=== PATIENT | male | born 1965 | race Caucasian/White ===

== ENCOUNTER 2020-01-04 06:37 | Outpatient (CLI) | payer BC, SELFPAY ==
--- NOTE | ~2020-01-04 | CT_ITS ---
EXAMINATION: CT abdomen pelvis w con DATE: 01/04/2020 07:25 INDICATION: Left lower quadrant abdominal pain. Liver abscess. Diverticulitis. TECHNIQUE: Computed tomography (CT) of the abdomen and pelvis was performed with 100 cc Omnipaque 350 intravenous contrast. Automated exposure control and iterative reconstruction technique were employe d. Exam dose: 815.29 mGy-cm total exam DLP. COMPARISON: 09/27/2018 CT abdomen pelvis with IV contrast material 03/29/2019 MRI abdomen FINDINGS: There are scattered areas of discoid atelectasis or scarring in the lower lung zones. Normal heart size. No pericardial or pleural effusion. Status post cholecystectomy. No bile duct or pancreatic duct dilatation. No pancreatic mass lesion or calcification. There are occasional areas of subtle ill-defined diminished attenuation of the liver of uncertain sig nificance. There is a history of liver abscess. Liver abscesses may be present. Hepatic solid mass le sions or metastases cannot be excluded. Recommend hepatic MRI evaluation which can be done with the p reviously recommended follow-up MRI evaluation of the previously reported Bosniak 2F cystic lesion of the left kidney. The left renal lesion is ill-defined and may measure up to as much as 12 mm on the current examinatio n. Hypernephroma is not excluded. As previously recommended, MRI of the left kidney is recommended at this time. There is splenomegaly, spleen measuring up to 17.3 cm vertical dimension, compared to 16 cm vertical dimension on 09/27/2018.. Normal morphology of the adrenal glands. There is abdominal aortic calcification and calcification of the iliac arteries. There is an approximately 1.5 x 2.4 cm pericolic abscess in the sigmoid colon area, with thickening o f the wall of the sigmoid colon and pericolic fat stranding in this area, compatible with sigmoid div erticulitis and diverticular abscess. No bowel obstruction or intraperitoneal free air is evident. Normal appendix. No intraperitoneal or retroperitoneal or pelvic mass lesion or adenopathy or ascites is noted. Small fat-containing left inguinal hernia. Included skeletal structures are unremarkable; no suspicious osteolytic or osteoblastic lesion is not ed. IMPRESSION: MRI examination of the liver and kidneys is recommended for possible liver and possibly enlarging left renal masses. Hypernephroma of the left kidney must be seriously considered and furthe r evaluation by MRI is strongly recommended. Sigmoid diverticulitis with diverticular abscess Splenomegaly Dr. Gasca telephoned the report and MRI liver and renal examination recommendation to Dr. Blandon on at 0822 hours. Reviewed, dictated and finalized at [facility]. Reviewed, dictated and finalized at [facility]. IMPRESSION: MRI examination of the liver and kidneys is recommended for possib le liver and possibly enlarging left renal masses. Hypernephroma of the left ki dney must be seriously considered and further evaluation by MRI is strongly rec ommended. Sigmoid diverticulitis with diverticular abscess Splenomegaly Dr. Gasca telephoned the report and MRI liver and renal examination recommendati on to Dr. Blandon on 01/04/2020 at 0822 hours.
== END 2020-01-04 06:38 | disposition home or self-care (01) ==
PROVIDERS: PCP Internal Medicine; Visit Provider Internal Medicine Gastroenterology
DX: K57.92 Diverticulitis of intestine, part unspecified, without perforation or abscess without bleeding (principal); K75.0 Abscess of liver; R16.1 Splenomegaly, not elsewhere classified
CPT/HCPCS: 74177; Q9967

== ENCOUNTER 2020-02-21 00:12 | Outpatient (CLI) | payer BC, SELFPAY ==
[2020-02-21 18:58] LABS: SARS-CoV-2 RNA PCR Negative
== END 2020-02-21 00:13 | disposition home or self-care (01) ==
LOC: ANHCOVIDDT 00:12
PROVIDERS: PCP Internal Medicine; Visit Provider Internal Medicine Gastroenterology
DX: Z01.812 Encounter for preprocedural laboratory examination (principal); Z20.828 Contact with and (suspected) exposure to other viral communicable diseases
CPT/HCPCS: 87635; C9803; U0003

== ENCOUNTER 2020-02-23 01:05 | Day surgery (SDC) | payer BC, SELFPAY ==
[2020-02-15 11:47] VITALS: BMI 30.9
--- NOTE | ~2020-02-23 | CT_ITS ---
EXAMINATION: CT abdomen pelvis w con DATE: 02/23/2020 08:59 INDICATION: Liver abscess. TECHNIQUE: Computed tomography (CT) of the abdomen and pelvis was performed with 100 mL Omnipaque 350 intravenous contrast. Automated exposure control and iterative reconstruction technique were employe d. The dose-length product was 735.90 mGy-cm. COMPARISON: CT abdomen and pelvis 01/04/2020, 09/27/2018, abdomen MRI 03/29/2019 FINDINGS: The visualized portions of the lung bases demonstrate mild atelectasis. No pleural effusion . The heart size is normal. No pericardial effusion. The liver is normal. There is mild splenomegaly measuring 16.8 cm. There are changes of cholecystectomy. The pancreas and adrenal glands are normal. There are cysts in the kidneys measuring up to 5 mm in the left. There is a 14 mm hyperdense mass in left kidney. Prominent fat in the left inguinal canal may be a small hernia. The prostate is mildly e nlarged. There are scattered diverticula in the colon. There is wall thickening of the sigmoid colon, consistent with chronic diverticulitis. There are no dilated loops of bowel. The appendix is normal. There are no pathologically enlarged lymph nodes. There is no free intraperitoneal fluid. There is m oderate lumbar spondylosis. IMPRESSION: 1. Wall thickening of the sigmoid colon, consistent with chronic diverticulitis. 2. 14 mm hyperdense mass in left kidney, which may be benign or malignant, increased in size from 10 mm on 03/29/2019. Abdomen CT or MRI without and with contrast is recommended. 3. Chronic mild splenomegaly. Reviewed, dictated and finalized at [facility]. IMPRESSION: 1. Wall thickening of the sigmoid colon, consistent with chronic diverticulitis . 2. 14 mm hyperdense mass in left kidney, which may be benign or malignant, incr eased in size from 10 mm on 03/29/2019. Abdomen CT or MRI without and with contr ast is recommended. 3. Chronic mild splenomegaly.
[2020-02-23 06:31] VITALS: BP 135/84; PULSE 76; RESP 14; TEMP 36.5; O2SAT 100; BMI 30.2
[2020-02-23] MEDS: LACTATED RINGERS 1,000 ML 150 ML IV CONT (06:42)
--- NOTE | 2020-02-23 07:21 | PM.IMHP ---
H&P: HPI History of Present Illness Chief complaint: Diverticulitis,Liver Abcess Narrative: This very pleasant gentleman seen in consultation at the request of the primary. The patient was examined. Reason for visit colonoscopy. Impression: History of diverticulitis with diverticular abscess. Presently feeling well. History adenomatous colon polyps. Left renal mass. Recommendation: Will proceed with colonoscopy. I did advise him of the increased risk of complications and perforation due to the history of diverticulitis with abscess. He understands and assumes is risks. Will require referral to Urology for left renal mass. History: This very pleasant gentleman presented emergency room back in September with diverticulitis and abscess. He required percutaneous drainage x2. The patient was seen in the office and December. He was continued to have symptoms. Follow-up CT revealed evidence of a left renal mass and a recurrent diverticular abscess. He was treated. Since that time has been feeling better than he has in a long time. His bowel habits are normal. He denies any hematochezia, melena and acholic stools. Denies any fever, chills, abdominal pain and upper gastrointestinal symptoms. He is here for colonoscopy. General: very pleasant patient in no acute distress. HEENT: Head was normocephalic sclerae is clear mouth without masses neck was supple. Heart: Rate rhythm regular without S3 or S4. Lungs: CTA. Abdomen: Soft with no guarding or rigidity. Bowel sounds were active. Neurologic: Cranial nerves 2 through 12 intact. No focal defects. No clonus. Musculoskeletal system: Revealed no joint tenderness or swelling no muscle atrophy. Extremities: Reveal no significant edema. Skin: Warm and dry with normal turgor. Mental status: intact. Patient is alert and oriented. Review of Systems Review of Systems: All systems reviewed & are unremarkable except as noted in HPI and below PMFSH Past Medical History Medical History Adenomatous colon polyp Diverticulitis Diverticulitis of intestine with abscess Healthy adult Surgical History Surgical History H/O colonoscopy History of ear surgery Hx of cholecystectomy S/P foot surgery, left Family History Family History Father Hx of CABG Other Cerebrovascular accident Family history of cardiovascular disease Social History Social History Smoking status: Never smoker Alcohol intake: current Substance use: never Gender identity (if verbalized by the patient): Male Meds Home Medications and Allergies Home Medications Medication Instructions Recorded Confirmed Type No Home Medications 02/15/20 02/23/20 History Allergies Allergy/AdvReac Type Severity Reaction Status Date / Time ciprofloxacin Allergy Unknown hives Verified 02/23/20 06:29 Vital Signs Vital Signs - 24 hr 02/23/20 06:31 Temperature 36.5 C Pulse Rate 76 Respiratory Rate 14 Blood Pressure 135/84 Pulse Oximetry 100
--- NOTE | 2020-02-23 07:21 | WPDANESEPPF ---
Anes - Initial Pre Proc Eval Procedure: Operation Date: 02/23/20 07:30 Proposed Procedures p Colonoscopy - Boogie Blandon DO Date/Time: 02/23/20 07:21 Surgeon: Boogie Blandon DO Pre Op Diagnosis: Diverticulitis,Liver Abcess Patient Data Age: 54 Gender: M Height: 5 ft 10 in Weight: 95.7 kg Last Vital Signs Temp 97.7 F 02/23/20 06:31 Pulse 76 02/23/20 06:31 Resp 14 02/23/20 06:31 BP 135/84 02/23/20 06:31 Pulse Ox 100 02/23/20 06:31 Allergies Allergy/AdvReac Type Severity Reaction Status Date / Time ciprofloxacin Allergy Unknown hives Verified 02/23/20 06:29 Home Medications Medication Instructions Recorded Confirmed Type No Home Medications 02/15/20 02/23/20 History Patient hx anesthesia problems: none Family hx anesthesia problems: none PMFSH Past Medical History Medical History (Updated 02/23/20 @ 07:21 by Herman Cole MD) Adenomatous colon polyp Diverticulitis Diverticulitis of intestine with abscess Healthy adult Surgical History Surgical History H/O colonoscopy History of ear surgery Hx of cholecystectomy S/P foot surgery, left Social History Social History Smoking status: Never smoker Alcohol intake: current Substance use: never Gender identity (if verbalized by the patient): Male Anes - Eval Final PreProcedure Day of Procedure 02/23/20 07:21 Patient weight: normal Heart: regular rate and rhythm Lungs: clear to auscultation Airway: Mallampati scale class II Neurological: alert and oriented Last oral intake: >/= 8 hours ASA classification: I Emergent: no Anesthetic plan: proceed Anesthesia type and monitoring: general GIVS and standard monitoring Informed Consent: The patient's anesthetic plan and its attendant risks and benefits were discussed with the patient/family/POA. Questions were solicited and answers provided to the satisfaction of the patient/family/POA.
[2020-02-23 07:58] VITALS: BP 113/73; PULSE 78; RESP 21; O2SAT 96
[2020-02-23 08:08] VITALS: BP 110/71; PULSE 69; RESP 17; O2SAT 98
[2020-02-23 08:18] VITALS: BP 119/82; PULSE 63; RESP 14; O2SAT 100
[2020-02-23 08:28] VITALS: BP 116/74; PULSE 65; RESP 17; O2SAT 100
--- NOTE | 2020-02-23 09:03 | SUR.PHASEII ---
0821 PT WENT TO GET CT SCAN DONE VIA WHEELCHAIR AND IV WILL BE REMOVED THERE
== END 2020-02-23 08:41 | disposition home or self-care (01) ==
PROVIDERS: PCP Internal Medicine; Visit Provider Internal Medicine Gastroenterology
PROC: 0DJD8ZZ Inspection of Lower Intestinal Tract, Via Natural or Artificial Opening Endoscopic (ICD-10-PCS; CPT 45378; principal; 2020-02-23 07:30)
DX: Z12.11 Encounter for screening for malignant neoplasm of colon (principal); D12.2 Benign neoplasm of ascending colon; D12.3 Benign neoplasm of transverse colon; K57.30 Diverticulosis of large intestine without perforation or abscess without bleeding; K64.8 Other hemorrhoids; N28.9 Disorder of kidney and ureter, unspecified; R16.1 Splenomegaly, not elsewhere classified; Z87.19 Personal history of other diseases of the digestive system; Z95.1 Presence of aortocoronary bypass graft
CPT/HCPCS: 45385; 74177; 88305; J2704; J7120; Q9967

== ENCOUNTER 2020-03-15 07:53 | Outpatient (CLI) | payer BC, SELFPAY ==
--- NOTE | ~2020-03-15 | MR_ITS ---
EXAMINATION: MR abdomen wo/w con INDICATION: Left kidney mass TECHNIQUE: Coronal SSFSE ARC, WATER:coronal LAVA-FLEX, Coronal 2D FIESTA FatSat, Axial SSFSE BH ARC, Axial 3D DualEcho BH, Axial SSFSE-IR, Axial DWI b=500, Axial 2D FIESTA FatSat, pre and dynamic postco ntrast Axial LAVA ARC, postcontrast Coronal In and Opposed phase LAVA FLEX COMPARISON: 02/23/2020, 03/29/2019, 10/08/2018 CONTRAST: Multihance, 20 cc FINDINGS: There is a 1.4 cm T1 and T2 hypointense mass of the left kidney upper pole which demonstrat es enhancing internal septations and increased in size since the comparison MRI examinations. A 6 mm cyst is present in the upper pole of the left kidney. Cysts of the right kidney measure up to 5 mm. T he liver is diffusely low in attenuation when compared with the spleen, consistent with hepatic steat osis. There are two new areas of hypoenhancement in the right hepatic lobe of unclear significance, n ot felt to be related to the left kidney mass. The larger of the two measures 1.7 x 1.4 cm and is adj acent to an opacity of the right lower lobe, possibly related to interval trauma or infection. Mild s plenomegaly is noted. The gallbladder is surgically absent. The pancreas and adrenal glands are mikey l. There are no pathologically enlarged abdominal lymph nodes. There are no dilated loops of bowel. IMPRESSION: 1. Left kidney mass with interval enlargement, raising suspicion for renal cell carcinoma rather than a benign complex cystic lesion. Reviewed, dictated and finalized at [facility].
[2020-03-15 08:22] LABS: Estimated Glomerular Filt Rate > 60
== END 2020-03-15 07:54 | disposition home or self-care (01) ==
PROVIDERS: PCP Internal Medicine; Visit Provider Urology
DX: N28.89 Other specified disorders of kidney and ureter (principal)
CPT/HCPCS: 36415; 74183; A9577

== ENCOUNTER 2020-04-04 06:49 | Outpatient (CLI) | payer BC, SELFPAY ==
--- NOTE | ~2020-04-04 | NM_ITS ---
EXAMINATION: NM liver and spleen scan DATE: 04/04/2020 08:36 INDICATION: Splenomegaly. TECHNIQUE: 8.3 mCi sulfur colloid was administered intravenously. Images of the abdomen were michelle isai COMPARISON: Abdomen MRI 03/15/2020, CT abdomen and pelvis 02/23/2020, 09/08/2010 FINDINGS: There is a normal distribution of activity in the liver, spleen, and bone marrow. The splee n is mildly enlarged. IMPRESSION: 1. Mildly enlarged spleen, stable from 09/08/2010, likely secondary to obesity. Reviewed, dictated and finalized at [facility].
== END 2020-04-04 06:50 | disposition home or self-care (01) ==
LOC: ANHIMG 06:52
PROVIDERS: PCP Internal Medicine; Visit Provider Internal Medicine Medical Oncology
DX: R16.1 Splenomegaly, not elsewhere classified (principal)
CPT/HCPCS: 78215; A9541

== ENCOUNTER 2020-11-26 11:56 | Outpatient (CLI) | payer BC, SELFPAY ==
--- NOTE | 2020-11-26 12:34 | ECG_ITS ---
Measurements Intervals [place] Rate: 60 P: -6 NH: 174 QRS: -13 QRSD: 108 T: 29 QT: 389 QTc: 389 Interpretive Statements SINUS RHYTHM INCOMPLETE RIGHT BUNDLE BRANCH BLOCK DELAYED PRECORDIAL R/S TRANSITION BASELINE ARTIFACT- I, II, AVR, AVL, V4 BORDERLINE ECG Electronically Signed On 11-26-2020 12:46:22 CDT by Fidel Calhoun D.O.
== END 2020-11-26 11:57 | disposition home or self-care (01) ==
PROVIDERS: PCP Internal Medicine; Visit Provider Surgery
DX: K57.92 Diverticulitis of intestine, part unspecified, without perforation or abscess without bleeding (principal); Z01.818 Encounter for other preprocedural examination; I45.10 Unspecified right bundle-branch block
CPT/HCPCS: 36415; 86850; 86900; 86901; 93005

== ENCOUNTER → 2020-12-01 00:24 | Outpatient (CLI) | payer BC, SELFPAY ==
[2020-12-01 19:13] LABS: SARS-CoV-2 RNA PCR Negative
== END ==
PROVIDERS: PCP Internal Medicine; Visit Provider Surgery
DX: Z01.812 Encounter for preprocedural laboratory examination (principal); Z20.822 Contact with and (suspected) exposure to COVID-19
CPT/HCPCS: C9803; U0003; U0005

== ENCOUNTER 2020-12-05 13:59 | Inpatient (IN) | payer BC, SELFPAY ==
[2020-11-26 12:35] VITALS: BP 162/81; PULSE 64; RESP 16; TEMP 36.9; O2SAT 100; BMI 33.1
--- NOTE | 2020-12-04 14:31 | PM.IMHP ---
H&P: HPI History of Present Illness Date/Time: 12/04/20 14:31 Chief Complaint: Recurrent diverticulitis Narrative: the patient is a 55-year-old man whom I evaluated initially 9 months ago in February of 2020. At that time he had recently completed a colonoscopy on 02/23/[address] Blandon. This showed a benign polyp in the ascending colon the colon and transverse colon as well as diverticulosis. The patient has had at least 7 or 8 episodes of acute diverticulitis prior to his initial evaluation. He had about 3 episodes within the last 12 months. One episode required admission to [facility] for diverticulitis with abscess. He had to have percutaneous drains placed. He had a follow-up CT scan of the abdomen pelvis done on 02/23/2020 which showed some mild wall thickening of the sigmoid colon and evidence of chronic diverticulitis. It incidentally showed a 14 mm hyperdense mass in the left kidney. The patient also consulted with Urology and had an MRI regarding this kidney lesion. This turned out to be a kidney malignancy and patient had a left partial nephrectomy on 05/18/2020 done robotically. 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 Patient followed up with me again 07/23/2020 after he had healed from his partial nephrectomy. He had fortunately avoided further episodes of diverticulitis. We plan to proceed with hand access laparoscopic sigmoidectomy but restrictions on elective inpatient surgery due to the COVID pandemic precluded the surgery. He is now taken to surgery for this purpose. He has had a full bowel preparation and explanation of the surgery as well as the recovery period and potential risks. Review of Systems Review of Systems: All systems reviewed & are unremarkable except as noted in HPI and below Constitutional: Constitutional: Denies chills and Denies fever(s) ENT: Denies headache(s) Cardiovascular: Cardiovascular: Denies chest pain, Denies diaphoresis, Denies dyspnea and Denies paroxysmal nocturnal dyspnea Respiratory: Respiratory: Denies chest congestion, Denies cough and Denies dyspnea Gastrointestinal: Gastrointestinal: Denies bloating, Denies constipation and Denies nausea Integumentary/Breasts: Skin/Breast: Denies lesions and Denies rash Neurologic: Denies confusion and Denies headache(s) Psychiatric: Psychiatric: Denies confusion [facility] Past Medical History Medical History (Updated 12/04/20 @ 14:43 by Geronimo Roberts MD) Adenomatous colon polyp Diverticulitis Diverticulitis of intestine with abscess Healthy adult Surgical History Surgical History H/O colonoscopy History of colonoscopy by Dr. Blandon on 02/23/2020 at [place] History of ear surgery History of left ear surgery about [address] 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
[2020-12-05] VITALS (11 sets, daily range): BP systolic 122–167; BP diastolic 68–85; PULSE 68–101; RESP 12–20; TEMP 36.2–36.7; O2SAT 93–99
--- NOTE | 2020-12-05 06:55 | WPDHPUPDATE1 ---
History and Physical Update Update Date/Time: 12/05/20 06:55 History and Physical has been reviewed, including an updated exam of the patient. There are NO changes in the patient's condition. Risks, benefits, and alternatives have been discussed and questions answered. Patient agrees to proceed with procedure.
--- NOTE | 2020-12-05 07:11 | P.PNAN_ITS ---
Anes - Initial Pre Proc Eval Procedure: Operation Date: 12/05/20 08:30 Proposed Procedures p Hand Assisted Laparoscopic Sigmoidectomy - Geronimo Roberts MD Date/Time: 12/05/20 07:11 Surgeon: Geronimo Roberts MD Pre Op Diagnosis: Diverticulitis Patient Data Age: 55 Gender: M Height: 5 ft 10 in Weight: 104.9 kg Last Vital Signs Temp 36.9 C 11/26/20 12:35 Pulse 64 11/26/20 12:35 Resp 16 11/26/20 12:35 BP 162/81 H 11/26/20 12:35 Pulse Ox 100 11/26/20 12:35 Allergies Allergy/AdvReac Type Severity Reaction Status Date / Time ciprofloxacin Allergy Intermediate Hives Verified 11/26/20 12:07 Home Medications Medication Instructions Recorded Confirmed Type naproxen sodium [Aleve] 440 mg PO HS 11/26/20 11/26/20 History Patient hx anesthesia problems: none Family hx anesthesia problems: none PMFSH Past Medical History Medical History Adenomatous colon polyp Diverticulitis Diverticulitis of intestine with abscess Healthy adult Surgical History Surgical History H/O colonoscopy History of colonoscopy by Dr. Blandon on 02/23/2020 at [place] History of ear surgery History of left ear surgery about [address] 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 Questions were solicited and answers provided to the satisfaction of the patient/family/POA.
[2020-12-05] MEDS: LACTATED RINGERS 1,000 ML 30 ML IV CONT ×2 (07:45→12:20)
[2020-12-05] MEDS: ACETAMINOPHEN 500 MG TABLET 1000 MG PO (07:45)
[2020-12-05] MEDS: ALVIMOPAN 12 MG CAPSULE PO (07:45)
[2020-12-05] MEDS: KETOROLAC 15 MG/ML VIAL (*BKC) IV PUSH (07:54)
[2020-12-05] MEDS: ceFAZolin 2 GM/D5W 50 ML 2 GM/50 ML BAG IVPB (08:15)
[2020-12-05] MEDS: metroNIDAZOLE 500 MG/ISO 100ML 500 MG/100 ML BAG 100 MG IVPB (08:29)
[2020-12-05] MEDS: BUPIVACAINE/EPINEPHRINE 0.5% 30 ML VIAL INFILTRATE (09:19)
--- NOTE | 2020-12-05 12:01 | SUR.OPER ---
ebl 150. 200 ml urine
--- NOTE | 2020-12-05 12:43 | PM.PROC ---
Procedure Note - Detailed Date of procedure: 12/05/20 Pre-op diagnosis: Diverticulitis Diverticulitis with abscess Post-op diagnosis: same Procedure performed: Hand access laparoscopic sigmoid colon resection with stapled #33 EEA anastomosis, laparoscopic takedown splenic flexure Description of procedure: The patient was taken to surgery and induced into general anesthesia. The abdomen was prepped and draped. The patient was in lithotomy in Nash stirrups. Rectal tube in rectal irrigation were carried out. Gilman catheter was placed. The hand access port in the lower abdominal midline was marked on the skin. Local was infiltrated into the skin and the subcutaneous. Incision was made and dissection was carried down through the subcutaneous down to the anterior rectus fascia. We opened the anterior rectus fascia near the midline and then pulled the rectus muscles aside. The posterior rectus fascia was then opened in the peritoneal cavity entered. This incision was extended the length of the wound. The Martínez was then placed in the abdomen. I felt for any adhesions around the hand access incision and none were noted. We then placed the GelPort. With a hand in the abdomen, I placed the left-sided 10 11 trocar. Local anesthetic was infiltrated prior to placement of this in each of the trocars. With the left-sided trocar placed, we insufflated the abdomen. Under direct vision we then placed an upper abdominal midline 10 11 trocar and a right-sided 5 mm trocar. General laparoscopic exploration was carried out. The LigaSure was used for literally all the intra-abdominal dissection. A few adhesions of small intestine in the pelvis were taken down so that the small intestine could be mobilized out of the pelvis and, with the help of a laparotomy sponge, kept on the right side of the abdomen. From there, we took down the lateral peritoneal attachments to the descending colon and sigmoid colon. The sigmoid colon was quite thickened particularly at its distal aspect which was likely the source of the diverticulitis. There were more adhesions to the descending colon then usual due to the previous robotic left partial nephrectomy. I mobilized the descending colon and there was some bleeding with the mobilization largely due to the previous surgery. This was not significant bleeding but more of a metal some ooze. He usually responded to pressure and laparotomy sponge. I went ahead and mobilized the descending colon towards the splenic flexure. Once we were in the area of the left kidney the adhesions were particularly numerous. I carefully dissected the descending colon and splenic flexure from the spleen and residual left kidney. This was done with the LigaSure. There was no significant bleeding. Eventually I was able to mobilize the entire descending colon and including the distal part of the splenic flexure. I then exposed the transverse colon and then dissected it from omentum and from the spleen as well as peritoneal adhesions. I mobilized the distal transverse colon and splenic flexure down to their mesentery so they were fully mobilized. The bowel looked very healthy. There was no evidence of bowel ischemia. I then started dividing the mesentery of the distal transverse colon very near the retroperitoneum, staying away from the marginal artery. Once gaining access to the mesentery in this area, I continued this dissection. The inferior mesenteric vein was divided with the LigaSure as well. I continued dividing the base of the mesentery to the entire descending colon down to the area of the sigmoid colon. This gave full mobility to the descending colon to reach down into the pelvis for anastomosis. Again the bowel was checked and had an excellent appearance with no evidence of vascular impairment. The sigmoid colon was then mobilized both from the left lateral aspect and also by dividing the peritoneum just to the right of the sacral promontory. I mobilized th
[2020-12-05] MEDS: fentaNYL CITRATE INJ (*CRX) 100 MCG/2 ML VIAL 25 MCG IV PUSH ×5 (12:54→13:42)
--- NOTE | 2020-12-05 13:33 | SUR.PHASEI ---
1330 sbar faxed floor notified
[2020-12-05] MEDS: LACTATED RINGERS 1,000 ML 100 ML IV CONT (14:16)
[2020-12-05] MEDS: HYDROcodone/acetaminophen (*CRX) 5-325 MG TABLET 1 TAB PO ×2 (14:17→18:27)
[2020-12-05] MEDS: IBUPROFEN IV 800 MG/200 ML 800 MG/200 ML BAG 400 MG IVPB ×2 (14:28→20:10)
--- NOTE | 2020-12-05 14:31 | ADMGEN ---
This patient, Roscoe Daley, was admitted to Medical Room 246-01. Patient/family oriented to hospital policies and general routines including ID bracelet, bed and alarms, visiting hours, pain management, procedures, bathroom and other care routines, personal items, smoking policy, room service/diet, and visiting hours. Information on how to activate the Rapid Response Team has been discussed. Patient/Family are encouraged to report perceived risks to care and to ask questions if they do not understand what they are told or what they should do.
[2020-12-05 15:36] LABS: Mean Platelet Volume 9.7 fl (7.4-10.4); Platelet Count Result 155 k/mm3 (150-375)
[2020-12-05] MEDS: FAMOTIDINE 20 MG/2 ML VIAL IV PUSH (20:11)
[2020-12-05] MEDS: ENOXAPARIN 30 MG/0.3 ML SYRINGE SUB-Q (20:11)
[2020-12-05] MEDS: MORPHINE SULFATE (*CRX) 4 MG/ML INJ 2 MG IV PUSH (21:45)
[2020-12-06] MEDS: IBUPROFEN IV 800 MG/200 ML 800 MG/200 ML BAG 400 MG IVPB ×2 (01:09→08:11)
[2020-12-06] MEDS: LACTATED RINGERS 1,000 ML 100 ML IV CONT (01:11)
[2020-12-06] MEDS: LIDOCAINE HCL 2% GEL UROJET 10 ML PKG MUCOUS MEM (01:11)
[2020-12-06] MEDS: HYDROcodone/acetaminophen (*CRX) 5-325 MG TABLET 1 TAB PO ×5 (01:19→20:37)
[2020-12-06] MEDS: MORPHINE SULFATE (*CRX) 2 MG/ML INJ 1 MG IV PUSH ×2 (02:09→04:52)
[2020-12-06 04:00] VITALS: BP 151/78; PULSE 88; RESP 18; TEMP 36.4; O2SAT 97
[2020-12-06 05:59] LABS: Hematocrit 40.1 % (42.0-52.0); Hemoglobin 13.9 g/dL (14.0-18.0); Mean Corpuscular HGB Conc 34.7 g/dl (32-36); Mean Corpuscular Hemoglobin 31.7 pg (26-34); Mean Corpuscular Volume 91.3 fl (80-100); Mean Platelet Volume 9.4 fl (7.4-10.4); Platelet Count Result 126 k/mm3 (150-375); Red Blood Count 4.39 M/mm3 (4.6-6.20); Red Cell Distribution Width 12.8 % (11.5-14.5); White Blood Count 15.6 K/mm3 (4.5-10.0)
[2020-12-06 06:05] LABS: Anion Gap 6 mmol/L (8-16); Blood Urea Nitrogen 14 mg/dL (9-20); Calcium 8.4 mg/dL (8.4-10.2); Carbon Dioxide 26 mmol/L (22-30); Chloride 106 mmol/L (98-107); Estimated CRCL calculation 98 ml/min; Estimated Glomerular Filt Rate > 60; Glucose 138 mg/dL (75-110); Potassium 3.8 mmol/L (3.4-5.0); Sodium 138 mmol/L (137-145)
--- NOTE | 2020-12-06 06:05 | PM.PNGS ---
Progress Note: A&P Assessment and Plan (1) Diverticulitis of large intestine with abscess without bleeding: Code(s): K57.20 - Diverticulitis of large intestine with perforation and abscess without bleeding Status: Chronic Assessment and Plan: Will double the p.r.n. doses of morphine sulfate. Up today. Check labs which are pending at this time. Advance diet slowly. Hopefully will be more comfortable today. Subjective Subjective Date/Time Seen: 12/06/20 06:05 Post Op day: 1 Patient reports: still having pain, no flatus, no bowel movement and afebrile Interval history: Had a rough night. Pain control was poor. Had to be cathed as he was unable to void. 1000 cc came back after being catheterization. Voiding okay this morning. Insomnia Review of Systems Review of Systems: All systems reviewed & are unremarkable except as noted in HPI and below Constitutional: Constitutional: Reports as per HPI, Denies chills, Reports difficulty sleeping, Denies fever(s), Denies headache(s) and Reports poor appetite Cardiovascular: Cardiovascular: Denies chest pain and Denies dyspnea Respiratory: Respiratory: Denies cough and Denies dyspnea Gastrointestinal: Gastrointestinal: Reports as per HPI, Reports abdominal pain, Denies nausea and Denies vomiting Neurologic: Denies confusion and Denies headache(s) Exam Const: General: comfortable and no acute distress; No confusion Orientation/consciousness: patient oriented x3 and No confusion GI: Inspection: non-distended and incision ( all incisions healing well) GI Palp: Yes Soft to palpation, Yes Tenderness to palpation present (GI) ( diffusely tender particularly around incisions.), No Guarding due to palpation present (GI) and No Rebound tenderness present Neuro: General: patient oriented x3, no focal motor deficits and No confusion Extrem: General: no calf tenderness and no edema Psych: Affect: normal affect Insight: Good insight present (Psych) Judgement: Good judgement present (Psych) Objective Data Vital Signs Vital Signs: Vital Signs - 24 hr 12/05/20 07:02 12/05/20 12:25 12/05/20 12:39 Temperature 36.5 C 36.5 C Pulse Rate 68 74 74 Respiratory Rate 20 16 18 Blood Pressure 153/85 H 126/75 122/68 Pulse Oximetry 99 96 97 12/05/20 12:50 12/05/20 13:05 12/05/20 13:20 Temperature Pulse Rate 77 88 91 Respiratory Rate 12 12 14 Blood Pressure 131/77 142/77 H 146/74 H Pulse Oximetry 99 99 93 12/05/20 13:35 12/05/20 13:50 12/05/20 15:50 Temperature 36.7 C Pulse Rate 88 97 82 Respiratory Rate 12 12 16 Blood Pressure 138/72 126/69 Pulse Oximetry 93 96 95 12/05/20 18:51 12/05/20 21:43 12/06/20 04:00 Temperature 36.2 C L 36.7 C 36.4 C L Pulse Rate 90 101 H 88 Respiratory Rate 16 18 18 Blood Pressure 167/75 H 141/68 H 151/78 H Pulse Oximetry 98 97 97 Intake/Output Intake/Output: Intake & Output 12/03/20 12/04/20 12/05/20 12/06/20 23:59 23:59 23:59 23:59 Intake Total 800 1200 Output Total 2000 Balance 800 -800 Meds/Results Medications: Active Medications Generic Name Dose Route Start Last Admin Trade Name Freq PRN Reason Stop Dose Admin Acetaminophen 500 mg 12/05/20 13:59 Acetaminophen 500 Mg Tablet PO Q6H PRN Mild Pain (1-3) or Fever Hydrocodone Bitart/Acetaminophen 1 tab 12/05/20 13:59 12/06/20 01:19 Hydrocodone/Acetaminophen (*Crx) 5-325 Mg Tablet PO 1 tab Q4H PRN Administration Pain Rated 4-6 Alvimopan 12 mg 12/06/20 12:38 Alvimopan 12 Mg Capsule PO 12/13/20 12:39 Q12HR YVETTE Lactated Ringer's 1,000 mls @ 80 mls/hr 12/05/20 13:59 12/06/20 01:11 Lr - Lactated Ringers Iv IV CONT 100 mls/hr .[id number] YVETTE Administration Ibuprofen 800 mg in 200 mls @ 400 mls/hr 12/05/20 14:00 12/06/20 01:40 Caldolor 800 Mg/200 Ml IVPB Infused Q6H YVETTE Infusion Naloxone HCl 0.1 mg 12/05/20 13:59 Naloxone Hcl 0.4 Mg/Ml Vial IV PUSH Q2M PRN Opiat
[2020-12-06] MEDS: MORPHINE SULFATE (*CRX) 4 MG/ML INJ IV PUSH ×4 (06:21→18:53)
[2020-12-06 08:00] VITALS: BP 153/81; PULSE 79; RESP 16; TEMP 36.2; O2SAT 99
[2020-12-06] MEDS: ENOXAPARIN 40 MG/0.4 ML SYRINGE SUB-Q (08:09)
--- NOTE | 2020-12-06 08:22 | PC.NURSE ---
call to pharm for missing pepcid
[2020-12-06] MEDS: FAMOTIDINE 20 MG TABLET PO ×2 (09:13→20:37)
--- NOTE | 2020-12-06 09:18 | WPDANESPN ---
Anes - Prog Note Post-Op Date/Time: 12/06/20 09:18 Cardiovascular status: normal Respiratory status: normal Airway patency: baseline Mental status: baseline Post-Op hydration status: normal Vital Signs: Last Vital Signs Temp 97.1 F L 12/06/20 08:00 Pulse 79 12/06/20 08:00 Resp 16 12/06/20 08:00 BP 153/81 H 12/06/20 08:00 Pulse Ox 99 12/06/20 08:00 Pain Score (VAS): 09/23 I/O: Intake & Output 12/05/20 12/06/20 12/06/20 23:59 07:59 15:59 Intake Total 300 1200 440 Output Total 2320 Balance 300 -1120 440 Laboratory Tests 12/06/20 05:11 12/06/20 05:11 12/05/20 12/06/20 12/06/20 14:22 05:11 05:11 WBC 15.6 H RBC 4.39 L Hgb 13.9 L Hct 40.1 L MCV 91.3 MCH 31.7 MCHC 34.7 RDW 12.8 Plt Count 155 126 L MPV 9.7 9.4 Sodium 138 Potassium 3.8 Chloride 106 Carbon Dioxide 26 Anion Gap 6 L BUN 14 Creatinine 0.90 Estim Creat Clear Calc 98 Estimated GFR > 60 Glucose 138 H Calcium 8.4 Patient Feedback: Patient satisfied with anesthetic care.
[2020-12-06 09:41] VITALS: O2SAT 94
[2020-12-06 10:00] VITALS: BP 153/77; PULSE 81; RESP 16; TEMP 36.3; O2SAT 97
[2020-12-06] MEDS: ALVIMOPAN 12 MG CAPSULE PO ×2 (12:36→20:37)
[2020-12-06 14:00] VITALS: BP 158/83; PULSE 92; RESP 16; TEMP 36.2; O2SAT 99
[2020-12-06] MEDS: IBUPROFEN IV 800 MG/200 ML 800 MG/200 ML BAG 200 MG IVPB (14:34)
[2020-12-06] MEDS: IBUPROFEN 600 MG TABLET PO ×2 (18:53→23:48)
[2020-12-06 20:00] VITALS: BP 150/76; PULSE 91; RESP 16; TEMP 36.5; O2SAT 97
[2020-12-07] MEDS: HYDROcodone/acetaminophen (*CRX) 5-325 MG TABLET 1 TAB PO ×2 (02:15→08:41)
[2020-12-07 04:00] VITALS: BP 144/76; PULSE 79; RESP 16; TEMP 36.6; O2SAT 96
[2020-12-07 05:48] LABS: Hematocrit 38.7 % (42.0-52.0); Hemoglobin 13.3 g/dL (14.0-18.0); Mean Corpuscular HGB Conc 34.4 g/dl (32-36); Mean Corpuscular Hemoglobin 31.7 pg (26-34); Mean Corpuscular Volume 92.4 fl (80-100); Mean Platelet Volume 9.1 fl (7.4-10.4); Platelet Count Result 112 k/mm3 (150-375); Red Blood Count 4.19 M/mm3 (4.6-6.20); White Blood Count 10.7 K/mm3 (4.5-10.0)
[2020-12-07 06:05] LABS: Anion Gap 3 mmol/L (8-16); Blood Urea Nitrogen 16 mg/dL (9-20); Calcium 8.5 mg/dL (8.4-10.2); Carbon Dioxide 30 mmol/L (22-30); Chloride 105 mmol/L (98-107); Estimated CRCL calculation 98 ml/min; Estimated Glomerular Filt Rate > 60; Glucose 117 mg/dL (75-110); Potassium 3.7 mmol/L (3.4-5.0); Sodium 138 mmol/L (137-145)
[2020-12-07] MEDS: IBUPROFEN 600 MG TABLET PO (06:28)
[2020-12-07 08:03] VITALS: BP 142/91; PULSE 78; RESP 16; TEMP 35.7; O2SAT 99
--- NOTE | 2020-12-07 08:09 | PM.DS ---
DS: Admitting Diagnosis Admitting Diagnosis Admitting Diagnosis: Diverticulitis with abscess history renal cell cancer status post robotic left partial nephrectomy DS: Discharge Diagnosis Discharge Diagnosis (1) Diverticulitis of large intestine with abscess without bleeding: Code(s): K57.20 - Diverticulitis of large intestine with perforation and abscess without bleeding Status: Chronic (2) Hx of renal cell cancer: Code(s): Z85.528 - Personal history of other malignant neoplasm of kidney Status: Chronic DS: Summary Hospital Course Hospital Course: patient has had multiple episodes of diverticulitis. With 1 episode he had an abscess that required percutaneous drainage at another hospital. Last summer he had colonoscopy which showed only the diverticular disease and a couple of benign polyps. Last fall he had a robotic partial left nephrectomy for a 1.2 cm left renal cell cancer. Margins were clear. He had been planned to have sigmoidectomy for his diverticulitis but due to the pandemic this was postponed until the current admission. Patient was prepared for surgery and taken to the operating room on 12/05/2020. He underwent hand access laparoscopic sigmoid colon resection with stapled number 33 EEA anastomosis. Laparoscopic takedown of the splenic flexure was also performed. The surgery went well. He was started on a bland liquid diet and slowly advanced. He was requiring IV narcotic analgesics on postop day 1. But his pain improved. He had several stools including some diarrhea in the evening of postop day 1. This improved and he was tolerating solid food. He was comfortable on oral analgesics and ambulating without difficulty. He was able to be discharged on postop day 2. In good condition. Pathology report on the sigmoid colon showed diverticulitis with pericolonic abscess but no evidence of neoplasm. Status at Discharge Functional status at discharge: independent ambulation Overall status at discharge: patient is progressing back to baseline Time Spent with Patient Time attestation: Total time spent providing and/or coordinating discharge services: Exam GI: Inspection: non-distended and incision ( All incisions healing well) GI Palp: Yes Soft to palpation and Yes Tenderness to palpation present (GI) Auscultation: normal bowel sounds DS: Data Data Completed and Pending Completed studies during hospitalization: Pending at discharge 12/05/20 10:42 Surgical [PTH] Routine Labs on day of discharge: Labs from last 24 hours 12/07/20 12/07/20 05:14 05:14 WBC 10.7 H RBC 4.19 L Hgb 13.3 L Hct 38.7 L MCV 92.4 MCH 31.7 MCHC 34.4 RDW 13.0 Plt Count 112 L MPV 9.1 Sodium 138 Potassium 3.7 Chloride 105 Carbon Dioxide 30 Anion Gap 3 L BUN 16 Creatinine 0.90 Estim Creat Clear Calc 98 Estimated GFR > 60 Glucose 117 H Calcium 8.5 Discharge Plan Discharge Attending physician on discharge: Geronimo Roberts Discharging Clinician: Geronimo Roberts Anticipated Discharge Date/Time: 12/07/20 08:15 Patient Disposition: Home, Self-Care Activity: may shower, no straining and as tolerated Diet: as tolerated and regular Wound Care Instructions: incision open to air Discharge Instructions: Ambulate 3-4 x per day and as tolerated. No lifting over 15-20lbs. May bathe or shower. Stairs are OK. May drive a car on Thursday. Patient Instructions: Antibiotic Form Stand Alone Forms: General Discharge Information Follow-up/Referrals: Geronimo Roberts MD [Physician] - 12/17/20 ( Call office for appointment) Discharge Medications: New hydrocodone-acetaminophen 5-325 mg tablet 1 - 2 tablet PO Q6H PRN (Reason: pain) Qty: 7 RF: 0 ibuprofen 600 mg tablet 600 mg PO Q6H PRN (Reason: pain) Qty: 25 RF: 0 Held naproxen sodium [Aleve] 220 mg Capsule 440 mg PO HS RF: 0 Hold Instructions: Resume on
[2020-12-07] MEDS: FAMOTIDINE 20 MG TABLET PO (08:41)
[2020-12-07] MEDS: ENOXAPARIN 40 MG/0.4 ML SYRINGE SUB-Q (08:43)
[2020-12-07] MEDS: ALVIMOPAN 12 MG CAPSULE PO (08:43)
== END 2020-12-07 12:55 | disposition home or self-care (01) | DRG 331 ==
LOC: ANH2MED 14:05
PROVIDERS: Admitting Provider Surgery; PCP Internal Medicine; Visit Provider Surgery
PROC: 0D1E4Z4 Bypass Large Intestine to Cutaneous, Percutaneous Endoscopic Approach (ICD-10-PCS; principal; 2020-12-05 08:30)
DX: K57.21 Diverticulitis of large intestine with perforation and abscess with bleeding (principal); Z85.528 Personal history of other malignant neoplasm of kidney
CPT/HCPCS: 36415; 80048; 85027; 85049; 88307; A9270; C1713; C1729; J0690; J1100; J1170; J1650; J1741; J1885; J2250; J2270; J2405; J2704; J2710; J3010; J7030; J7120

== ENCOUNTER 2021-11-22 08:55 | Outpatient (CLI) | payer BC, SELFPAY ==
--- NOTE | ~2021-11-22 | CT_ITS ---
EXAMINATION: CT abdomen pelvis wo/w con DATE: 11/22/2021 09:48 INDICATION: Renal cell carcinoma TECHNIQUE: Computed tomography (CT) of the abdomen was performed without intravenous contrast. CT of the abdomen and pelvis was then performed with a total of 130 mL Omnipaque 350 intravenous contrast u sing a double-bolus technique for simultaneous opacification of the renal parenchyma and renal collec ting system. The dose-length product (DLP) was 1930.34 mGy-cm. Automated exposure control and iterati ve reconstruction technique were employed. COMPARISON: 02/23/2020 FINDINGS: The lung bases are clear. The heart size is normal. The liver is diffusely low in attenuati on when compared with the spleen, consistent with hepatic steatosis. The gallbladder is surgically ab sent. The spleen, pancreas, and adrenal glands are normal. There are surgical changes in the left mid kidney. No residual or recurrent mass is identified. There is a 5 mm cyst of the left kidney upper p ole. No suspicious renal or urothelial lesion is identified. No pathologically enlarged abdominal or pelvic lymph nodes are identified. There is no free intraperitoneal gas or evidence of bowel obstruct ion. There is calcified atherosclerosis of the aorta and many of the other arteries. There has been i nterval surgical change at the rectosigmoid junction. The appendix is normal. There is moderate lumba r spondylosis. IMPRESSION: 1. Surgical changes in the left mid kidney without residual or recurrent neoplasm identified. 2. Interval surgical change of the rectosigmoid colon. 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 Surgical changes in the left mid kidney without residual or recurrent neopla sm identified. 2. Interval surgical change of the rectosigmoid colon.
== END 2021-11-22 08:56 | disposition home or self-care (01) ==
PROVIDERS: PCP Internal Medicine; Visit Provider Urology
DX: C64.2 Malignant neoplasm of left kidney, except renal pelvis (principal)
CPT/HCPCS: 74178; Q9967

== ENCOUNTER → 2023-04-30 15:26 | Outpatient (CLI) | payer BC, SELFPAY ==
--- NOTE | ~2023-04-30 | XR_ITS ---
EXAMINATION: XR hand BI arthritis min 3V DATE: 04/30/2023 15:41 INDICATION: Pain in the right fingers. TECHNIQUE: 4 views of right hand and 4 views of left hand on a total of 7 radiographs were obtained. COMPARISON: None. FINDINGS: RIGHT HAND: Bone alignment is normal. No fracture. There is moderate osteoarthritis of first carpomet acarpal joint with loose body. There is mild osteoarthritis of first interphalangeal joint, third pro ximal interphalangeal joint, and second, third, and fifth distal interphalangeal joints. LEFT HAND: Bone alignment is normal. No fracture. There is moderate osteoarthritis of first carpal me tacarpal joint with loose body. There is moderate osteoarthritis of first interphalangeal joint. Ther e is mild osteoarthritis of third and fourth proximal interphalangeal joints and second-fifth distal interphalangeal joints. IMPRESSION: 1. Polyarticular osteoarthritis. Reviewed, dictated and finalized at location A.
== END ==
PROVIDERS: PCP Nurse Practitioner; Visit Provider Nurse Practitioner
DX: M19.041 Primary osteoarthritis, right hand (principal); M19.042 Primary osteoarthritis, left hand
CPT/HCPCS: 73130

== ENCOUNTER 2023-10-30 15:14 | Outpatient (CLI) | payer BC, SELFPAY ==
--- NOTE | ~2023-10-30 | US_ITS ---
EXAMINATION: US soft tissue UE RT DATE: 10/30/2023 15:29 INDICATION: Palpable abnormality region of the right first metacarpophalangeal joint. TECHNIQUE: Multiple grayscale and Doppler ultrasound images of the region of concern at the palmar as pect of the right first metacarpophalangeal joint were obtained. COMPARISON: Right hand radiographs dated 04/30/23 FINDINGS: Normal appearance to the subcutaneous fat,, the visualized portions of the flexor tendons and distal thenar muscles and underlying bone at the region of concern. No abnormal masses or fluid collections identified. IMPRESSION: 1. No abnormal masses or fluid collections identified at the region of concern. Reviewed, dictated and finalized at location A. 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
== END 2023-10-30 15:15 ==
LOC: MICIMG 15:14
PROVIDERS: PCP Nurse Practitioner Family; Visit Provider Nurse Practitioner Family
DX: R22.31 Localized swelling, mass and lump, right upper limb (principal)
CPT/HCPCS: 76882

== ENCOUNTER 2024-01-19 15:30 | Outpatient (RCR) | payer BC, SELFPAY | END 2024-02-15 09:41 | disposition home or self-care (01) | LOC: ANHDMC 15:30 | PROVIDERS: PCP Nurse Practitioner; Visit Provider Nurse Practitioner | DX: E11.9 Type 2 diabetes mellitus without complications (principal); Z71.89 Other specified counseling | CPT/HCPCS: G0108 ==

== ENCOUNTER 2024-04-30 10:50 | Emergency (ER) | payer BC, SELFPAY ==
--- NOTE | 2024-04-30 12:42 | ED.GENADULT ---
HPI - General Adult General Chief complaint: Skin/Abscess/Foreign Body Stated complaint: possible shingles Time Seen by Provider: 04/30/24 12:15 History of Present Illness HPI narrative: Patient is a 59-year-old gentleman who presents emergency department chief complaint of rash on the upper back and neck. The patient reports he had symptoms started on reports that it is blisters and is painful. The patient reports that he has prior history of diabetes reports that he has had a little bit of a viral-like prodrome before the symptoms started. Patient denies chest pain denies shortness of breath Related Data Allergies Allergy/AdvReac Type Severity Reaction Status Date / Time ciprofloxacin Allergy Intermediate Hives Verified 03/04/24 12:52 Review of Systems Review of Systems: A 10 system review of systems was completed on the patient and is negative except for what is stated in the HPI. Nursing and ancillary documentation was reviewed. [facility] Past Medical History Medical History Adenomatous colon polyp Diverticulitis Diverticulitis of intestine with abscess Healthy adult Surgical History Surgical History H/O colonoscopy History of colonoscopy by Dr. Blandon on 02/23/2020 at [place] H/O partial nephrectomy History of ear surgery History of left ear surgery about [address] Beltran at [place] Hx of cholecystectomy History of cholecystectomy around 2009 at [place] S/P foot surgery, left occurred in 1985 S/P laparoscopic-assisted sigmoidectomy Hand access laparoscopic sigmoid colon resection with stapled #33 EEA anastomosis, laparoscopic takedown splenic flexure Family History Family History Father Hx of CABG Depression Mother Dementia Tuberculosis Other Heart disease Other Cerebrovascular accident Social History Social History Smoking status: Never smoker Alcohol intake: current Drinks per week: 6 Alcohol use details: every other week socially Substance use: never Lack of Transportation: No Lack of Food: Never True Current Housing: I Have Housing Concerned About Future Housing: No Difficulty Paying Gas/Electric Bills: No Difficulty Paying for Meds: No Currently Unemployed: No Education: High School Diploma/GED Difficulty w/ Childcare or Family Care: No Living arrangements: with friend(s) Additional living arrangements comments: lives with girlfriend Occupation/Education: occupation 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 HEAD: Normocephalic, atraumatic. EYES: PERRLA and EOMI. ENT: Nares clear, no rhinorrhea or epistaxis. Mucous membranes moist. NECK: Supple. CHEST: Clear to auscultation. No respiratory distress. HEART: Regular rate and rhythm. No murmur heard. Normal peripheral pulses. ABDOMEN: Soft, nontender, nondistended, normal active bowel sounds. EXTREMITIES: Normal range of motion. No edema. SKIN: Warm, dry, zoster form rash on the left upper shoulder and neck. NEURO: No focal deficits. Alert and oriented x3. PSYCH: Normal mood and affect. Medical Decision Making MDM Narrative Medical decision making narrative: differential diagnosis includes varicella zoster, dermatitis, allergic reaction, patient's exam is consistent with zoster. The patient was started on antivirals and was instructed to follow-up with his primary care provider Discharge Plan Discharge Clinical Impression: Herpes zoster Qualifiers: Herpes zoster complications: without complications Qualified Code(s): B02.9 -
[2024-04-30] MEDS: valACYclovir HCL 500 MG TABLET 1000 MG PO (13:22)
== END 2024-04-30 13:44 | disposition home or self-care (01) ==
PROVIDERS: Emergency Provider Emergency Medicine; PCP Nurse Practitioner
DX: B02.9 Zoster without complications (principal)
CPT/HCPCS: 99283; A9270

== ENCOUNTER 2025-02-08 15:14 | Outpatient (CLI) | payer BC, SELFPAY ==
--- NOTE | ~2025-02-08 | XR_ITS ---
Lumbosacral Spine: AP and lateral views Clinical History: Pain Findings: The normal lordotic curve is maintained. The vertebral bodies and posterior elements are i ntact. The intervertebral disc spaces demonstrate mild degenerative change. There is extensive, daniel re facet arthropathy throughout the lumbar spine. The sacroiliac joints are normally outlined. Impression: Moderate degenerative spondylosis overall, with extensive advanced facet arthropathy in particular. Reviewed, dictated and finalized at location M. Impression: Moderate degenerative spondylosis overall, with extensive advanced facet arthro edouard in particular.
== END 2025-02-08 15:15 | disposition home or self-care (01) ==
LOC: MICIMG 15:15
PROVIDERS: PCP Nurse Practitioner; Visit Provider Nurse Practitioner
DX: M47.896 Other spondylosis, lumbar region (principal)
CPT/HCPCS: 72100

== ENCOUNTER 2025-05-19 10:03 | Outpatient (CLI) | payer BC, SELFPAY ==
--- NOTE | ~2025-05-19 | MR_ITS ---
EXAMINATION: MR lumbar spine wo con DATE: 05/19/2025 10:28 INDICATION: Low back pain, unspecified. TECHNIQUE: Magnetic resonance imaging (MRI) of the lumbar spine was performed without intravenous contrast. Sequences included sagittal T2-weighted FSE, sagittal T2-weighted FS FSE, sagittal T1-weighted FSE, and axial T2-weighted FSE. COMPARISON: Lumbar spine MRI 09/20/2008 FINDINGS: Bone alignment is normal. There are Schmorl's nodes at most levels. There is mildly decreased disc height from L1-L2 through L5-S1. The distal spinal cord signal intensity is normal. The conus medullaris is at L1-L2. The following disc levels are specifically discussed: L1-L2: The disc is bulging. There is moderate right and mild left facet joint osteoarthritis. There is mild bilateral neural foraminal stenosis. There is mild central canal stenosis. L2-L3: The disc is bulging with superimposed right subarticular zone extrusion. There is mild bilateral facet joint osteoarthritis. There is mild bilateral neural foraminal stenosis. There is mild central canal stenosis. There is moderate stenosis of right lateral recess. L3-L4: The disc is bulging and has an annular fissure. There is moderate bilateral facet joint osteoarthritis. There is moderate bilateral neural foraminal stenosis. There is moderate central canal stenosis. L4-L5: The disc is bulging and has an annular fissure. There is severe bilateral facet joint osteoarthritis. There is moderate bilateral neural foraminal stenosis. There is mild central canal stenosis. L5-S1: The disc is bulging and has an annular fissure. There is severe bilateral facet joint osteoarthritis. There is mild bilateral neural foraminal stenosis. There is mild central canal stenosis. IMPRESSION: 1. Moderate lumbar spondylosis, worsened from 09/20/2008 Reviewed, dictated and finalized at location E.
== END 2025-05-19 10:04 | disposition home or self-care (01) ==
LOC: MICIMG 10:04
PROVIDERS: PCP Nurse Practitioner; Visit Provider Nurse Practitioner
DX: M47.896 Other spondylosis, lumbar region (principal)
CPT/HCPCS: 72148